=== PATIENT | female | born 1970 ===

== ENCOUNTER 2017-02-07 11:53 | Emergency (ER) | payer SELFPAY ==
[~2017-02-07] VITALS: Ht 162.6 cm; Wt 89.0 kg
[2017-02-07 11:55] VITALS: Ht 162.6 cm; Wt 89.0 kg
[2017-02-07] MEDS ORDERED: SODI30SP2 NS (12:48)
--- NOTE | 2017-02-07 13:04 | ERD ---
ER Documentation Chief Complaint Date/Time DATE: 02/07/17 TIME: 13:01 Chief Complaint right nostril epistaxis x 25 min HPI This is a 47-year-old female presenting to the emergency department for epistaxis 25 minutes. Patient has had bright red bleeding from right nostril for the past 25 minutes. Bleeding has stopped while in waiting room. Patient takes aspirin every other day with last dose yesterday. No other medications. Denies chest pain, shortness breath or difficulty breathing. Patient states she has nasal congestion and dryness. Has not tried any creams or medications for this. ROS All systems reviewed and are negative except as per history of present illness. Medications Home Meds Active Scripts Sodium Chloride (Saline Nasal Jolley) 30 Ml Jolley, 30 ML NS BID, #1 SPRAY Prov:MARCELINA CHEUNG Marianela WOODRUFF 02/07/17 PMhx/Soc Medical and Surgical Hx: pt denies Medical Hx, pt denies Surgical Hx Hx Alcohol Use: No Hx Substance Use: No Hx Tobacco Use: No Smoking Status: Never smoker Physical Exam Vitals Vital Signs Date Time Temp Pulse Resp B/P Pulse Ox O2 Delivery O2 Flow Rate FiO2 02/07/17 11:55 98.1 83 16 146/77 99 Physical Exam Const: No acute distress, alert Head: Atraumatic Eyes: Normal Conjunctiva ENT: Normal External Ears, Nose and Mouth. Neck: Full range of motion..~ No meningismus. Resp: Clear to auscultation bilaterally Cardio: Regular rate and rhythm, no murmurs Abd: Soft, non tender, non distended. Normal bowel sounds Skin: No petechiae or rashes Back: No midline or flank tenderness Ext: No cyanosis, or edema Neur: Awake and alert Psych: Normal Mood and Affect Procedures/MDM MDM: 47-year-old female presents to ER for epistaxis x 25min. Patient had bright red bleeding from right nostril. Bleeding stopped while in waiting room. No active bleeding on the ED. No signs or symptoms of anemia or hemorrhage. Vital signs are stable. Patient is afebrile. Patient self reports dryness to bilateral nares. Low suspicion for anemia or acute hemorrhage. Patient likely has epistaxis. Patient is appropriate for outpatient management and planned to discharge with saline nasal spray. Upon discharge, patient is unable to be located. Patient appears to have eloped. Departure Diagnosis: Primary Impression: Epistaxis Condition: Stable Patient Instructions: Epistaxis (Adult) Referrals: MILAN LANDON MD, MARC MD Additional Instructions: Call your primary care doctor TOMORROW for an appointment during the next 2-3 days.See the doctor sooner or return here if your condition worsens before your appointment time. Return to ED for any high fever, chest pain, difficulty breathing, shortness breath, wheezing, vomiting, diarrhea, abdominal pain or any new or worsening symptoms. MARCELINA CHEUNG NP February 07, 2017 13:04
== END 2017-02-07 15:20 | disposition left against medical advice (07) ==
LOC: FTE 11:53
DX: R04.0 Epistaxis (principal)
CPT/HCPCS: 99283